=== PATIENT | male | born 1960 | race Caucasian/White ===

== ENCOUNTER 2020-12-01 18:13 | Emergency (ER) | payer OTHER ==
[2020-12-01 19:38] LABS: BASOPHIL 1.1 % (0-2); EOSINOPHIL 3.8 % (0-5); HCT 40.8 % (42.0-52.0); HGB 13.8 g/dl (13.2-18.0); LYMPHOCYTE 13.4 % (15-48); MCH 30.7 pg (25.0-31.0); MCHC 33.8 g/dL (32.0-36.0); MCV 90.9 fL (78.0-100.0); MONOCYTE 14.3 % (0-12); MPV 8.7 fL (6.0-9.5); NEUTROPHIL 67.2 % (41-80); NRBC 0; PLT 190 K/uL (150-400); RBC 4.49 M/uL (4.70-6.00); RDW 12.3 % (11.5-14.0); WBC 4.5 K/uL (4.0-10.5)
[2020-12-01 19:41] LABS: BILIRUBIN NEGATIVE (NEGATIVE); BLOOD NEGATIVE Ery/uL (NEGATIVE); CLARITY CLEAR (CLEAR); COLOR YELLOW (YELLOW); GLUCOSE (U) NORMAL (NORMAL); LEUKOCYTES NEGATIVE Leu/uL (NEGATIVE); NITRITE NEGATIVE (NEGATIVE); PROTEIN NEGATIVE (NEGATIVE); UROBILINOGEN 0.2 mg/dL (0.2-1.0); pH 6.5 (5.0-9.0)
[2020-12-01 19:55] LABS: ALBUMIN 3.7 g/dL (3.4-5.0); BILIRUBIN - TOTAL 0.5 mg/dL (0.2-1.0); BUN/CREAT RATIO (CALC) 26.3 RATIO; CREATININE 0.99 mg/dL (0.67-1.17); POTASSIUM 3.9 mmol/L (3.5-5.1); TOTAL PROTEIN 6.7 g/dL (6.4-8.2)
[2020-12-01 20:13] LABS: LACTIC ACID 0.6 mmol/L (0.4-1.9)
[2020-12-01] MEDS ORDERED: TETRACYCLINE H500 MG PO (20:39)
[2020-12-01] MEDS ORDERED: CARAFATE1 GM PO (20:39)
[2020-12-01] MEDS ORDERED: METRONIDAZOLE500 MG PO (20:39)
[2020-12-01] MEDS ORDERED: PRILOSEC20 MG PO (20:39)
[2020-12-01] MEDS ORDERED: PEPTO-BISM525 MG/15 PO (20:39)
[2021-01-24] MEDS ORDERED: AMLODIPINE BESY10 MG PO (08:28)
[2021-01-24] MEDS ORDERED: LIPITOR40 MG PO (08:29)
[2021-01-24] MEDS ORDERED: HYDROCHLOROTH12.5 MG PO (08:29)
[2021-01-24] MEDS ORDERED: MELOXICAM15 MG PO (08:30)
[2021-01-24] MEDS ORDERED: VITAMIN D3 PO (08:31)
[2021-01-24] MEDS ORDERED: DAILY VITAMIN1 EAC2 PO (08:31)
[2021-01-24] MEDS ORDERED: ASPIRIN EC81 M1 PO (08:32)
[2021-01-24] MEDS ORDERED: LOVAZA1 GM PO (08:32)
[2021-01-24] MEDS ORDERED: CLARITIN10 MG PO (08:32)
== END 2020-12-01 21:12 | disposition home or self-care (01) ==
LOC: FER 18:13
PROVIDERS: Emergency Medicine Emergency Medical Services; Nurse Practitioner
DX: K27.3 Acute peptic ulcer, site unspecified, without hemorrhage or perforation (principal); I10 Essential (primary) hypertension; E78.5 Hyperlipidemia, unspecified; Z79.82 Long term (current) use of aspirin; Z79.899 Other long term (current) drug therapy
CPT/HCPCS: 36415; 71045; 80053; 81003; 83605; 83690; 84145; 84484; 85025; 87339; 93005; C9113

== ENCOUNTER → 2021-01-28 | Day surgery (SDC) | payer OTHER ==
[~2021-01-28] VITALS: Ht 182.9 cm; Wt 91.7 kg
[~2021-01-28] MED LIST: AMLODIPINE BESY10 MG PO; ASPIRIN EC81 M1 PO; CARAFATE1 GM PO; CLARITIN10 MG PO; DAILY VITAMIN1 EAC2 PO; HYDROCHLOROTH12.5 MG PO; LIPITOR40 MG PO; LOVAZA1 GM PO; MELOXICAM15 MG PO; METRONIDAZOLE500 MG PO; PEPTO-BISM525 MG/15 PO; PRILOSEC20 MG PO; TETRACYCLINE H500 MG PO; VITAMIN D3 PO
[2021-01-28 08:43] LABS: HCT 47.5 % (42.0-52.0); HGB 16.4 g/dl (13.2-18.0); MCH 30.4 pg (25.0-31.0); MCHC 34.5 g/dL (32.0-36.0); MCV 88.1 fL (78.0-100.0); MPV 9.1 fL (6.0-9.5); RBC 5.39 M/uL (4.70-6.00); RDW 12.3 % (11.5-14.0); WBC 5.1 K/uL (4.0-10.5)
[2021-01-28 09:03] LABS: ALBUMIN 4.2 g/dL (3.4-5.0); BILIRUBIN - TOTAL 1.3 mg/dL (0.2-1.0); BUN/CREAT RATIO (CALC) 20.2 RATIO; CREATININE 0.94 mg/dL (0.67-1.17); GLOBULIN (CALCULATION) 3.4 g/dL; POTASSIUM 3.6 mmol/L (3.5-5.1); TOTAL PROTEIN 7.6 g/dL (6.4-8.2)
== END | disposition home or self-care (01) ==
LOC: FAS 08:00
PROVIDERS: Surgery
DX: K29.51 Unspecified chronic gastritis with bleeding (principal); K20.91 Esophagitis, unspecified with bleeding; I10 Essential (primary) hypertension; E78.00 Pure hypercholesterolemia, unspecified; Z80.0 Family history of malignant neoplasm of digestive organs; Z79.82 Long term (current) use of aspirin; Z79.899 Other long term (current) drug therapy
CPT/HCPCS: 36415; 80053; J2250; J2704; J7120